=== PATIENT | female | born 1955 | race Hispanic/Latino ===

== ENCOUNTER 2019-12-29 07:57 | Day surgery (SDC) | payer MEDICARE ==
[~2019-12-29] VITALS: Ht 157.5 cm; Wt 81.6 kg
[~2019-12-29 07:57] MED LIST: SODIUM CHLORIDE 0.9% 1000ML 1,000 ML IV ONE
[2019-12-29 09:12] VITALS: BP 126/68
[2019-12-29] MEDS ORDERED: ASPI81TA40 PO (09:28)
[2019-12-29] MEDS ORDERED: TRAM50TA4 PO (09:28)
[2019-12-29] MEDS ORDERED: METF-444 PO (09:28)
[2019-12-29] MEDS ORDERED: GABA-531 PO (09:28)
[2019-12-29] MEDS ORDERED: TELM20TA8 PO (09:28)
[2019-12-29] MEDS ORDERED: BROM5CAP12 PO (09:28)
[2019-12-29] MEDS ORDERED: SERT100T12 PO (09:28)
[2019-12-29] MEDS ORDERED: BUPR100T13 PO (09:28)
[2019-12-29] MEDS ORDERED: ONDA-104 PO (09:28)
[2019-12-29] MEDS ORDERED: ATOR20TA65 PO (09:28)
[2019-12-29] MEDS ORDERED: TOPI25CA5 PO (09:28)
[2019-12-29] MEDS ORDERED: OMEP40CA13 PO (09:28)
[2019-12-29] MEDS ORDERED: HYDR12.54 PO (09:28)
[2019-12-29] MEDS ORDERED: PROPOFOL 10 MG/ML 20ML VIAL IV ONE (11:01)
[2019-12-29 11:29] VITALS: BP 95/55
[2019-12-29 11:40] VITALS: BP 105/65
[2019-12-29 11:49] VITALS: BP 120/73
== END 2019-12-29 11:55 | disposition home or self-care (01) ==
LOC: ENDO 07:57 → DAH 07:57 → ENDO 11:55
PROVIDERS: ATTEND Internal Medicine Gastroenterology
DX: R19.7 Diarrhea, unspecified (principal); K57.30 Diverticulosis of large intestine without perforation or abscess without bleeding; R10.30 Lower abdominal pain, unspecified; K21.9 Gastro-esophageal reflux disease without esophagitis; F32.9 Major depressive disorder, single episode, unspecified; E11.9 Type 2 diabetes mellitus without complications; I10 Essential (primary) hypertension; M19.90 Unspecified osteoarthritis, unspecified site; F41.9 Anxiety disorder, unspecified; M79.7 Fibromyalgia; G43.909 Migraine, unspecified, not intractable, without status migrainosus; G47.30 Sleep apnea, unspecified; Z90.49 Acquired absence of other specified parts of digestive tract; Z98.890 Other specified postprocedural states; R06.83 Snoring; E66.01 Morbid (severe) obesity due to excess calories
CPT/HCPCS: 45380; 82948; A4215; A4221; A4222; A4223; A4606; A4615; A4663; J2704; J7030